=== PATIENT | female | born 1945 | race African-American/Black ===

== ENCOUNTER 2016-08-18 10:27 | Inpatient (IN) ==
--- NOTE | 2016-08-15 14:48 | Discharge Summary ---
<Shannon Cartwright Marivel - Last Filed: 08/17/16 21:24> Date of Encounter: 08/17/16 - Discharge Diagnosis (1) Arthritis of right hip Priority: Primary Status: Acute (2) Chronic pain Priority: Secondary Status: Chronic Comments: Oxycodone/brittany 10/325mg q 6 hours - #120~ LD 07/28/16 - Dr. Aragon Fentanyl Patch 25 mcg - 30 day supply for 07/10/16 Resume the chronic pain medication at discharge, and start Oxycodone 5mg 2 tablets once a day - this way she will take pain medication q 4 hours,~ in addition to the normal routine. This will be continued for 1 week post-op, then tapered down to~ normal dosage. We may consider adding Gabapentin and Mobic for additional pain control. (3) COPD (chronic obstructive pulmonary disease) Priority: Secondary Status: Chronic Qualifiers: COPD type: unspecified COPD Qualified Code(s): J44.9 - Chronic obstructive pulmonary disease, unspecified (4) HLD (hyperlipidemia) Priority: Secondary Status: Chronic (5) GERD (gastroesophageal reflux disease) Priority: Secondary Status: Chronic Qualifiers: Esophagitis presence: esophagitis presence not specified Qualified Code(s) : K21.9 - Gastro-esophageal reflux disease without esophagitis (6) Lumbar stenosis Priority: Secondary Status: Chronic - Discharge Medications Home Medications: Pantoprazole Sodium 40 mg PO DAILY 02/01/15 [History] Alendronate Sodium [Fosamax] 70 mg PO QWEEK 01/08/16 [History] Cholecalciferol (D-3) [Vitamin D] 5,000 unit PO DAILY 01/08/16 [History] Cyanocobalamin (Vitamin B-12) [Vitamin B-12] 1,000 mcg SL DAILY 01/08/16 [ History] FentaNYL PATCH [Duragesic] 25 mcg TD Q72H 01/08/16 [History] Folic Acid 1 mg PO DAILY 01/08/16 [History] Lubiprostone [Amitiza] 24 mcg PO BID 01/08/16 [History] Cinacalcet [Sensipar] 30 mg PO DAILY 07/15/16 [History] OxyCODONE/APAP 10/325 [Percocet 10/325 MG] 1 each PO Q6HR PRN 07/15/16 [History] Ranitidine HCl [Zantac] 150 mg PO BID 07/15/16 [History] Aspirin Enteric Coated [Aspirin EC] 325 mg PO DAILY #21 tablet. 08/17/16 [Rx] OxyCODONE Immed Rel [Roxicodone 5 MG] 5 - 10 mg PO DAILY #14 tablet 08/17/16 [Rx ] Acetaminophen [Tylenol Arthritis] 650 mg PO Q8H PRN 08/18/16 [History] Amitiza 24 mg PO BID 08/18/16 [History] Allergies/Adverse Reactions: Allergies duloxetine [From Cymbalta] Adverse Reaction (Unknown, Verified 08/18/16 13:13) Hallucinating pregabalin [From Lyrica] Adverse Reaction (Verified 08/18/16 13:13) WEIGHT GAIN Primary care physician: Natalia Barragan DO - Patient Status Disposition: Transfer Inpatient Rehab Fac Condition: Good - Discharge Instructions Follow Up With: Gabriel Queen MD [Partnered Physician] - 09/16/16 9:00 am Shannon Cartwright PAC [Physician Loader Technician] - 08/28/16 9:45 am Willem Power Jr, MD [Partnered Physician] - 01/16/17 11:30 am Elva Roldan MD [Partnered Physician] - 09/30/16 11:30 am Natalia Barragan DO [Primary Care Provider] - 09/01/16 10:45 am Additional Instructions: Discharge Instructions: Total Hip Replacement Please call [facility] ([phone]), your Primary Care Physician, or report to the Emergency Room if you have any of the following symptoms: Nausea, vomiting, fever greater that 101.5, swelling, chest pain, shortness of breath, increased pain/redness/drainage/odor for your incision site, numbness/ tingling, or any other concerning symptoms. ACTIVITY:Weight-bearing as tolerated for 8 weeks with hip dislocation precautions that physical therapy taught you. You may progress as tolerated under the guidance of your physical therapist. You do not need to sleep with a pillow between your legs. You can also seep on the operative side or on your stomach. MEDICATIONS: Upon discharge resume your home medications. Take all the medications as prescribed. Take a stool softener if taking narcotic pain medications. Stool softeners are only effective if you drink enough fluids. Drink 6-8 glass of water or fluids a day, unless this is not allowed for another health problem. Despite using stool softeners, if you haven't had a bowel movement in 3 days, please switch to a gentle laxative. Gentle laxatives are sold over the counter. You should have a bowel movement within 24 hours, if not call the office. You will be discharged from the hospital with a prescription for pain medication. You are encouraged to decrease the use of narcotic pain medication as tolerated. Should you require a refill, please call the office. [facility] prescribes narcotic pain medication for only 4-6 weeks after surgery. If you require pain medication beyond this time periord, you may be referred to your Primary Care Physician or to the Pain Clinic for further evaluation. Plan ahead for refills on pain medication as many narcotics either need to be picked up at the office or mailed. It is best to call 48-72 hours in advance of needing a prescription refill so you don't run out of medication. To help control the post-operative pain, you may take NSAIDs (Aleve,Advil, Motrin, ibuprofen, naprosyn) or Tylenol as prescribed on the bottle in addition to the pain medication. ANTICOAGULATION (blood thinners): Continue your Aspirin, Lovenox or Coumadin as prescribed to help prevent a blood clot in the leg or in the lungs. As long as your incision remains dry and you tolerate the NSAIDs (Aleve, Advil, Motrin, ibuprofen, naprosyn), it is OK to use the NSAIDS while you are taking your anticoagulation medication. Should your incision start to drain, stop the NSAID and contact our office. Common symptoms of blood clot in the legs include: localized pain, swelling, calf tenderness, redness or discoloration of the skin. Blood clot in the lung symptoms include: shortness of breath, rapid pulse, sweating, and chest pain that worsens with deep breathing, coughing up blood, lightheadedness, feelings of anxiety. If you experience any of these symptoms notify your physician immediately, go to the emergency room, or if having trouble breathing, call 911. WOUND CARE: Leave the dressing on for 7 days. You may change the dressing if it is saturated greater than 50%. You can shower but not a tub bath or submerge your incision in water. Wash your hands with antibacterial soap, rinse and dry prior to any wound care. If you have saturnino the visiting nurse or rehab facility can remove the stapes 10-14 days after surgery and place steri-strips across the wound. Leave the steri-strips in place until they fall off on their won. You may let water from the shower run on top of the steri-stirips. If you do not have a visiting nurse or rehab facility, you will need to return to the office at 10-14 days for the saturnino to be removed. FOLLOW-UP: Please follow up with your surgeon in the orthopedic clinic in 6 weeks from the day of surgery. If you have saturnino that need to be removed, you will need to come back to the office in 10-14 days from the day of surgery. - Hospital Course Hospital course: Ms. Kruger is a 71 year old female - Time Spent with Patient Total time spent providing and/or coordinating discharge services: <Gabriel Queen - Last Filed: 08/21/16 07:56> Date of Encounter: 08/21/16 Time of Encounter: 07:55 - Discharge Diagnosis (1) Arthritis of right hip Priority: Primary Status: Acute (2) COPD (chronic obstructive pulmonary disease) Priority: Secondary Status: Chronic Qualifiers: COPD type: unspecified COPD Qualified Code(s): J44.9 - Chronic obstructive pulmonary disease, unspecified (3) HLD (hyperlipidemia) Priority: Secondary Status: Chronic Qualifiers: Hyperlipidemia type: unspecified Qualified Code(s): E78.5 - Hyperlipidemia , unspecified (4) GERD (gastroesophageal reflux disease) Priority: Secondary Status: Chronic Qualifiers: Esophagitis presence: esophagitis presence not specified Qualified Code(s) : K21.9 - Gastro-esophageal reflux disease without esophagitis (5) Chronic pain Priority: Secondary Status: Chronic Qualifiers: Chronic pain type: other chronic pain Qualified Code(s): G89.29 - Other chronic pain (6) Vitamin D deficiency Priority: Secondary Status: Chronic (7) B12 deficiency Priority: Secondary Status: Chronic (8) Folate deficiency Priority: Secondary Status: Chronic (9) Lymphoma Priority: Secondary Status: Chronic Qualifiers: Lymphoma type: unspecified type Lymphoma site: unspecified region Qualified Code(s): C85.90 - Non-Hodgkin lymphoma, unspecified, unspecified site (10) Obesity (BMI 35.0-39.9 without comorbidity) Priority: Secondary Status: Chronic (11) Severe protein-calorie malnutrition Priority: Secondary Status: Chronic (12) Acute blood loss anemia Priority: Secondary Status: Chronic Primary care physician: Natalia Barragan DO - Patient Status Functional capacity at discharge: uses cane/walker Overall status at discharge: patient is progressing back to baseline - Hospital Course Hospital course: Ms. Kruger is a 71 year old female The patient had an uneventful postoperative course. They received antibiotics and physical therapy and were discharged in stable condition. There will follow -up in the office in 2 weeks. Patient received 2 units packed red blood cells for acute blood loss anemia. Aspirin DVT prophylaxis. - Time Spent with Patient Total time spent providing and/or coordinating discharge services:
[2016-08-18] MEDS ORDERED: Lidocaine -MPF 2% 2 ML VIAL ONE (10:31)
[2016-08-18] MEDS ORDERED: *HR* Propofol 200 MG/20 ML VIAL IVP ONE (10:31)
[2016-08-18] MEDS ORDERED: *HR* FentaNYL (PF) 100 MCG/2 ML VIAL ONE (10:31)
[2016-08-18] MEDS ORDERED: *HR* Succinylcholine 200 MG/10 ML VIAL IVP ONE (10:31)
[2016-08-18] MEDS ORDERED: Ondansetron 4 MG/2 ML VIAL ONE ×2 (10:31→12:35)
--- NOTE | 2016-08-18 10:52 | History & Physical Report ---
Date of Encounter: 08/18/16 Time of Encounter: 10:51 24 Hour HP Update - Instructions Instructions: If the History and Physical is less than 30 days old and was completed prior to A.M. admission and or procedure and has NOT been updated on calendar day of procedure please complete this update prior to performing procedure. - Update Patient reports changes in Medical Condition: No Changes in examination, assessment, or condition: No Changes in Medication: No Preop tests/diagnostics Reviewed: Yes Surgery Remains Indicated: Yes Consent for Planned Operative Procedure(s) Verified: Yes - Pre-Operative Checklist Preoperative Checklist Indicated: No Prophylactic Antibiotic Ordered: Yes Is VTE Prophylaxis Indicated?: Yes
[2016-08-18] MEDS ORDERED: Famotidine 20 MG/2 ML VIAL IVP ONE (11:08)
[2016-08-18] MEDS ORDERED: Albuterol 2.5 MG/3 ML NEBULIZER ONE (11:08)
[2016-08-18] MEDS ORDERED: Acetaminophen IV 1,000 MG/100 ML INFUS..BTL IVPB ONE (11:09)
[2016-08-18] MEDS ORDERED: Albuterol 2.5 MG/3 ML NEBULIZER IH ONE (11:10)
[2016-08-18] MEDS ORDERED: CeFAZolin Pre 2,000 MG/100 ML 2,000 MG/100 ML BAG IVPB ONE (11:10)
[2016-08-18] MEDS ORDERED: Ringers Solution, Lactated 1,000 ML IVC SCH (11:15)
--- NOTE | 2016-08-18 11:43 | Anesthesia Evaluation PreOp ---
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 History: Other (multi level DDD spondylolisthesis with radiculopathy) Other Medical History: GERD, Other (Obese) Anesthesia History: No Prior Anesthetic Complications : No Alcohol Use: none Drug use: none Medications and Allergies Pantoprazole Sodium 40 mg PO DAILY 02/01/15 [History] Alendronate Sodium [Fosamax] 70 mg PO QWEEK 01/08/16 [History] Cholecalciferol (D-3) [Vitamin D] 5,000 unit PO DAILY 01/08/16 [History] Cyanocobalamin (Vitamin B-12) [Vitamin B-12] 1,000 mcg SL DAILY 01/08/16 [ History] FentaNYL PATCH [Duragesic] 25 mcg TD Q72H 01/08/16 [History] Folic Acid 1 mg PO DAILY 01/08/16 [History] Lubiprostone [Amitiza] 24 mcg PO BID 01/08/16 [History] Pravastatin Sodium 10 mg PO HS 01/08/16 [History] Cinacalcet [Sensipar] 30 mg PO DAILY 07/15/16 [History] OxyCODONE/APAP 10/325 [Percocet 10/325 MG] 1 each PO Q6HR PRN 07/15/16 [History] Ranitidine HCl [Zantac] 150 mg PO BID 07/15/16 [History] Aspirin Enteric Coated [Aspirin EC] 325 mg PO DAILY #21 tablet. 08/17/16 [Rx] OxyCODONE Immed Rel [Roxicodone 5 MG] 5 - 10 mg PO DAILY #14 tablet 08/17/16 [Rx ] Allergies duloxetine [From Cymbalta] Adverse Reaction (Unknown, Verified 07/15/16 10:26) Hallucinating pregabalin [From Lyrica] Adverse Reaction (Verified 07/15/16 10:26) WEIGHT GAIN - Meds/Allergy Pre-op Review Medications Reviewed: Yes Allergies Reviewed: Yes Beta Blockers on Current Med List: No Anesthesia Results - Labs Laboratory Tests 08/07/16 08/07/16 13:28 13:28 Hgb 12.0 Hct 36.9 Plt Count 217 Sodium 142 Potassium 4.1 BUN 12 Creatinine 0.84 - Imaging EKG: report reviewed (NSR) Additional studies: EF 67% Anesthesia Exam O2 Sat Height 1.7 m Height 1.7 m Height 1.7 m Weight 104.326 kg Weight 104.326 kg Weight 104.326 kg O2 Sat by Pulse Oximetry 95 O2 Sat by Pulse Oximetry 95 O2 Sat by Pulse Oximetry 95 Vital Signs Temp Pulse Resp BP Pulse Ox 98.9 F 60 18 119/57 95 08/18/16 10:54 08/18/16 10:54 08/18/16 10:54 08/18/16 10:54 08/18/16 10:54 Height: 5'7 Weight: 230 lbs NPO (# of Hours): MN Pain Scale: 0 - HEENT Pupil (Motor): Pupils equal, EOMI Mallampati: III Denture Type: Upper: Complete Oral Opening: Less than or equal to 3 - ARTIST AND REPERTOIRE MANAGER LOC: Oriented ARTIST AND REPERTOIRE MANAGER Motor: Normal RUE, Normal LUE, Normal RLE, Normal LLE, Normal Face ARTIST AND REPERTOIRE MANAGER Sensory: Normal: RUE, LUE, RLE, LLE, Face - Cardiac Rhythm: Regular Murmur: None JVD: No Carotid Bruit: No - Pulmonary Breath Sounds: bilateral Clear Respiratory Effort: Symmetrical Anesthesia Assess/Plan ASA Score: 3 (OA COPD PATRICIA Gerd Obesity) Modified Mark Scale for Level of Consciousness: Cooperative, oriented, and tranquil Anesthetic Plan: General Monitoring Plan: Standard Monitors Recovery Plan: PACU (Discussed GA, agrees to proceed)
[2016-08-18] MEDS ORDERED: *HR* Promethazine 25 MG/ML VIAL IVP PRN (12:30)
[2016-08-18] MEDS ORDERED: Ondansetron 4 MG/2 ML VIAL IVP ONE (12:30)
[2016-08-18] MEDS ORDERED: Lidocaine -MPF 4% 5 ML AMPUL ONE (12:35)
[2016-08-18] MEDS ORDERED: Dexamethasone 4 MG/ML VIAL ONE (12:35)
[2016-08-18] MEDS ORDERED: *HR* HYDROmorphone 2 MG/ML SYRINGE ONE ×3 (13:34→13:58)
--- NOTE | 2016-08-18 14:16 | Orthopedic Operative Note ---
Date of procedure: 08/18/16 Pre-op diagnosis: Right hip arthritis Post-op diagnosis: same Procedure: Procedure: Right Total Hip Replacment Estimated blood loss: 200 cc Hardware: Biomet DM Cup: 56 G7 fin cup Femoral size 14 echo full profile lateralized stem Head: +0 head with Sahara Procedural Notes: Grade 4 arthritic changes femoral head acetabular socket. Operative procedure: The patient was brought to the operating room and placed on the operating room table. After general anesthesia was administered the patient was placed in the lateral decubitus position with the operative leg up. All pressure points were padded appropriately and the head was stabilized in the neutral position. The operative extremity was prepped and draped in the sterile surgical fashion patient received IV antibiotic prior to skin incision. A standard posterior approach is made to the operative hip, the incision was made through the skin and subcutaneous tissue hemostasis was obtained with Bovie cautery. Using careful sharp dissection the fascia was identified and incised exposing the external rotators. The external rotators were released off the greater trochanter and tagged with #2 FiberWire suture. The capsule was T'd open and the hip was brought into internal rotation. Patient noted to have grade 4 arthritic changes femoral head. The femoral neck cut was made at the appropriate level. An anterior capsulotomy was performed for the anterior retractor. Soft tissues removed from the acetabulum. Patient noted to have grade 4 arthritic changes acetabulum. Acetabulum was first reamed medially, and then reamed in 15 degrees of anteversion and 45 degrees off the horizontal. It was reamed up to the appropriate size 56 The appropriate-sized 56 acetabular cup was impacted in place in 15 degrees of anteversion and 45 degrees off the horizontal. This had good fit and fixation. The hip was brought back in to internal rotation and prepared with the dry box tender followed by the canal finder followed by broaching process in 20 degrees anteversion. It was broached up to the appropriate size 14 The femoral implant was impacted in place in 20 degrees of anteversion. Trial reduction found the hip to be stable with 0 head and Sahara. The trials were removed and the real implants were impacted in place. The hip was reduced, patient had apparent equal leg lengths. The hip had excellent stability with forward flexion to 90 degrees adduction of 30 degrees and internal rotation of 60 degrees. The hip had no shuck. The hips after 2 minutes with a Betadine saline solution. It was irrigated out with 2 L of pulse irrigation. The external rotators were reattached to drill holes in the greater trochanter. Fascia was closed with a running #2 PDS suture. The deep tissue was irrigated and closed deep with #1 PDS suture superficially with 0 PDS suture and skin was closed with skin saturnino. The patient was placed in a sterile dressing and abduction pillow. The patient was extubated and transferred to the recovery room in stable condition. Anesthesia: GETA Surgeon: Gabriel Queen Traveling Electrician: Shannon Cartwright Condition: stable Disposition: PACU
[2016-08-18] MEDS ORDERED: *HR* HYDROmorphone (PF) 1 MG/ML SYRINGE ONE (14:44)
[2016-08-18] MEDS: *HR* HYDROmorphone (PF) 1 MG/ML SYRINGE IVP PRN ×2 (14:45→14:50)
[2016-08-18 15:07] LABS: Hematocrit 33.5 % (35.3-44.9); Hemoglobin 10.7 g/dL (11.5-15.4)
--- NOTE | 2016-08-18 15:42 | Anesthesia Evaluation Post Op ---
Date of Encounter: 08/18/16 Time of Encounter: 15:40 - Vital Signs Vital Signs: Vital Signs/O2 Sat/Glucose, Most Current Temp Pulse Resp BP Pulse Ox 08/18/16 15:32 97.4 F L 73 16 131/59 100 08/18/16 15:27 69 16 130/54 100 08/18/16 15:17 74 16 141/64 100 08/18/16 15:07 97.4 F L 79 16 130/57 100 08/18/16 14:57 77 16 152/70 100 08/18/16 14:47 81 12 145/65 99 08/18/16 14:37 97.3 F L 78 12 136/69 100 - Lungs Lungs: Clear Ascult./Percussion - Airway Airway: Non-obstructed - Cardiovascular Regular Rate - Mental Status Mental Status: Alert & Oriented, Answers Appropriately - Pain Pain Scale: 0 - Nausea Vomiting Nausea Vomiting: Not Present - Hydration Hydration: Ice chips - Discharge PostOp Status: Transfer Patient to floor
[2016-08-18] MEDS ORDERED: Ondansetron 4 MG/2 ML VIAL IVP PRN (16:05)
[2016-08-18] MEDS ORDERED: Sennosides 8.6 MG TABLET PO PRN (16:05)
[2016-08-18] MEDS ORDERED: Acetaminophen 325 MG TABLET PO PRN (16:05)
[2016-08-18] MEDS: Ringers Solution, Lactated 1,000 ML IVC SCH ×2 (16:05→20:51)
[2016-08-18] MEDS ORDERED: Temazepam 15 MG CAPSULE PO PRN (16:05)
[2016-08-18] MEDS ORDERED: *HR* OxyCODONE/APAP 10/325 TABLET PO PRN (16:05)
[2016-08-18] MEDS ORDERED: MOM Conc 10 ML UD.LIQ PO PRN (16:05)
[2016-08-18] MEDS ORDERED: Naloxone 0.4 MG/ML INJ IVP PRN (16:05)
[2016-08-18] MEDS ORDERED: NON-FORMULARY MEDICATION 1 EACH EACH (Alendronate Sodium [Fosamax] 70 MG) PO SCH (16:05)
[2016-08-18] MEDS ORDERED: *HR* Enoxaparin 30 MG/0.3 ML SYRINGE SQ SCH (18:00)
[2016-08-18] MEDS: *HR* Enoxaparin 30 MG/0.3 ML SYRINGE SQ SCH (18:39)
[2016-08-18] MEDS: Ascorbic Acid 500 MG TABLET PO SCH (18:39)
[2016-08-18] MEDS: *HR* OxyCODONE Immed Rel 5 MG TABLET PO PRN (18:49)
[2016-08-18] MEDS: (Lubiprostone [Amitiza] 24 MCG) PO SCH (20:50)
[2016-08-18] MEDS: ceFAZolin 2,000 MG in D5% in Water 100 ML IVPB SCH (21:28)
[2016-08-19] MEDS: *HR* HYDROmorphone (PF) 1 MG/ML SYRINGE IVP PRN ×5 (01:22→22:27)
[2016-08-19] MEDS: ceFAZolin 2,000 MG in D5% in Water 100 ML IVPB SCH (05:16)
[2016-08-19] MEDS: *HR* Enoxaparin 30 MG/0.3 ML SYRINGE SQ SCH ×2 (05:17→17:40)
[2016-08-19 06:44] LABS: Hematocrit 28.5 % (35.3-44.9); Hemoglobin 9.2 g/dL (11.5-15.4)
--- NOTE | 2016-08-19 06:45 | Orthopedics Progress Note ---
Date of Encounter: 08/19/16 Time of Encounter: 06:45 - Assessment and Plan (1) Arthritis of right hip Current Visit: Yes Status: Acute (2) COPD (chronic obstructive pulmonary disease) Current Visit: Yes Status: Chronic Qualifiers: COPD type: unspecified COPD Qualified Code(s): J44.9 - Chronic obstructive pulmonary disease, unspecified (3) HLD (hyperlipidemia) Current Visit: Yes Status: Chronic Qualifiers: Hyperlipidemia type: unspecified Qualified Code(s): E78.5 - Hyperlipidemia , unspecified (4) GERD (gastroesophageal reflux disease) Current Visit: Yes Status: Chronic Qualifiers: Esophagitis presence: esophagitis presence not specified Qualified Code(s) : K21.9 - Gastro-esophageal reflux disease without esophagitis (5) Chronic pain Current Visit: Yes Status: Chronic Qualifiers: Chronic pain type: other chronic pain Qualified Code(s): G89.29 - Other chronic pain (6) Vitamin D deficiency Current Visit: No Status: Chronic (7) B12 deficiency Current Visit: No Status: Chronic (8) Folate deficiency Current Visit: No Status: Chronic (9) Lymphoma Current Visit: No Status: Chronic Qualifiers: Lymphoma type: unspecified type Lymphoma site: unspecified region Qualified Code(s): C85.90 - Non-Hodgkin lymphoma, unspecified, unspecified site (10) Obesity (BMI 35.0-39.9 without comorbidity) Current Visit: Yes Status: Chronic Subjective Interval history: Patient was seen this morning doing well without complaints. Afebrile vital signs stable. Operative extremity: Neurovascularly intact Dressing clean dry and intact Calves nontender Assessment and plan: Continue with postoperative care Hematocrit 33 Objective Vital signs: Vital Signs Temp Pulse Resp BP Pulse Ox 08/19/16 06:25 98.4 F 86 16 154/66 99 08/19/16 04:23 98.1 F 80 17 114/69 100 08/18/16 23:32 98.8 F 83 17 123/62 99 08/18/16 21:30 98 08/18/16 20:36 98.1 F 82 15 133/68 98 08/18/16 18:10 97.9 F 81 18 115/72 98 08/18/16 17:10 98 F 70 18 131/69 98 08/18/16 16:40 98.1 F 80 18 132/70 96 08/18/16 16:10 98 F 75 18 130/68 95 08/18/16 15:40 97.9 F 84 18 133/74 96 08/18/16 15:32 97.4 F L 73 16 131/59 100 08/18/16 15:27 69 16 130/54 100 08/18/16 15:17 74 16 141/64 100 08/18/16 15:07 97.4 F L 79 16 130/57 100 08/18/16 14:57 77 16 152/70 100 08/18/16 14:47 81 12 145/65 99 08/18/16 14:37 97.3 F L 78 12 136/69 100 08/18/16 11:14 98.9 F 60 18 119/57 95 08/18/16 10:54 98.9 F 60 18 119/57 95 Intake and Output 08/18/16 08/18/16 08/19/16 15:59 23:59 07:59 Intake Total 100 / 100 600 / 600 0 / 0 Output Total 400 / 400 250 / 250 100 / 100 Balance -300 / -300 350 / 350 -100 / -100 Intake: IV Fluids 100 / 100 600 / 600 Lactated Ringers 1,000 ML 500 / 500 @ 75 mls/hr IVC .[id number] [facility] Rx#:[id number] Ofirmev 1,000 mg In 100 100 / 100 ml @ 400 mls/hr IVPB ONCE ONE Rx#:[id number] Ancef 2,000 MG In 100 / 100 Dextrose 5% 100 ML @ 200 mls/hr IVPB Q8H [facility] Rx#: [id number] Oral 0 / 0 Output: Urine 250 / 250 100 / 100 Estimated Blood Loss 400 / 400 Other: Weight 104.326 kg - Labs CBC & BMP: 08/18/16 14:47 Labs: Abnormal lab results Hgb 10.7 g/dL (11.5-15.4) L 08/18/16 14:47 Hct 33.5 % (35.3-44.9) L 08/18/16 14:47 - VTE Documentation of Mechanical Device: Venous foot pump, device Consult Discharge Plan - Plan Referrals: Natalia Barragan DO [Primary Care Provider] -
[2016-08-19 06:55] LABS: BUN/Creatinine Ratio 19 (6-26); Blood Urea Nitrogen 17 mg/dL (7-20); Calcium 10.1 mg/dL (8.6-10.8); Carbon Dioxide 23 mEq/L (19-29); Chloride 108 mEq/L (98-109); Glucose 134 mg/dL (70-99); Osmolality,Calculated 294 (280-300); Potassium 4.5 mEq/L (3.5-4.5); Sodium 140 mEq/L (136-145); eGFR For African Americans > 60 (> 60); eGFR For Non-African Americans > 60 (> 60)
[2016-08-19] MEDS: Cyanocobalamin (B-12) 1,000 MCG TABLET PO SCH (08:52)
[2016-08-19] MEDS: Famotidine 20 MG TABLET PO SCH ×2 (08:52→17:40)
[2016-08-19] MEDS: Ascorbic Acid 500 MG TABLET PO SCH ×2 (08:52→17:40)
[2016-08-19] MEDS: Cholecalciferol (D-3) 1,000 UNIT TABLET PO SCH (08:52)
[2016-08-19] MEDS: Multivit/Ca/Min/Fe/FA 1 TAB TABLET PO SCH (08:53)
[2016-08-19] MEDS: Folic Acid 1 MG TABLET PO SCH (08:53)
[2016-08-19] MEDS: (Lubiprostone [Amitiza] 24 MCG) PO SCH ×2 (08:54→20:57)
[2016-08-19] MEDS: *HR* OxyCODONE Immed Rel 5 MG TABLET PO PRN ×2 (09:14→20:49)
[2016-08-20] MEDS: *HR* OxyCODONE Immed Rel 5 MG TABLET PO PRN ×4 (00:25→21:04)
[2016-08-20] MEDS: *HR* HYDROmorphone (PF) 1 MG/ML SYRINGE IVP PRN ×2 (03:58→17:42)
[2016-08-20] MEDS: *HR* Enoxaparin 30 MG/0.3 ML SYRINGE SQ SCH ×2 (05:12→17:42)
[2016-08-20 06:45] LABS: Hematocrit 22.4 % (35.3-44.9)
[2016-08-20 06:52] LABS: Hemoglobin 7.4 g/dL (11.5-15.4)
[2016-08-20 07:05] LABS: BUN/Creatinine Ratio 15 (6-26); Blood Urea Nitrogen 12 mg/dL (7-20); Calcium 10.4 mg/dL (8.6-10.8); Carbon Dioxide 24 mEq/L (19-29); Chloride 109 mEq/L (98-109); Glucose 129 mg/dL (70-99); Osmolality,Calculated 291 (280-300); Potassium 4.2 mEq/L (3.5-4.5); Sodium 140 mEq/L (136-145); eGFR For African Americans > 60 (> 60); eGFR For Non-African Americans > 60 (> 60)
[2016-08-20] MEDS: Cyanocobalamin (B-12) 1,000 MCG TABLET PO SCH (08:21)
[2016-08-20] MEDS: Famotidine 20 MG TABLET PO SCH ×2 (08:21→17:42)
[2016-08-20] MEDS: Ascorbic Acid 500 MG TABLET PO SCH ×2 (08:21→17:42)
[2016-08-20] MEDS: Folic Acid 1 MG TABLET PO SCH (08:22)
[2016-08-20] MEDS: Multivit/Ca/Min/Fe/FA 1 TAB TABLET PO SCH (08:22)
[2016-08-20] MEDS: Cholecalciferol (D-3) 1,000 UNIT TABLET PO SCH (08:22)
[2016-08-20] MEDS: (Lubiprostone [Amitiza] 24 MCG) PO SCH ×2 (08:23→20:52)
--- NOTE | 2016-08-20 08:27 | Orthopedics Progress Note ---
Date of Encounter: 08/20/16 Time of Encounter: 08:26 - Assessment and Plan (1) Arthritis of right hip Current Visit: Yes Status: Acute (2) COPD (chronic obstructive pulmonary disease) Current Visit: Yes Status: Chronic Qualifiers: COPD type: unspecified COPD Qualified Code(s): J44.9 - Chronic obstructive pulmonary disease, unspecified (3) HLD (hyperlipidemia) Current Visit: Yes Status: Chronic Qualifiers: Hyperlipidemia type: unspecified Qualified Code(s): E78.5 - Hyperlipidemia , unspecified (4) GERD (gastroesophageal reflux disease) Current Visit: Yes Status: Chronic Qualifiers: Esophagitis presence: esophagitis presence not specified Qualified Code(s) : K21.9 - Gastro-esophageal reflux disease without esophagitis (5) Chronic pain Current Visit: Yes Status: Chronic Qualifiers: Chronic pain type: other chronic pain Qualified Code(s): G89.29 - Other chronic pain (6) Vitamin D deficiency Current Visit: No Status: Chronic (7) B12 deficiency Current Visit: No Status: Chronic (8) Folate deficiency Current Visit: No Status: Chronic (9) Lymphoma Current Visit: No Status: Chronic Qualifiers: Lymphoma type: unspecified type Lymphoma site: unspecified region Qualified Code(s): C85.90 - Non-Hodgkin lymphoma, unspecified, unspecified site (10) Obesity (BMI 35.0-39.9 without comorbidity) Current Visit: Yes Status: Chronic (11) Severe protein-calorie malnutrition Current Visit: Yes Status: Chronic (12) Acute blood loss anemia Current Visit: Yes Status: Chronic Subjective Interval history: Patient was seen this morning doing well without complaints. Afebrile vital signs stable. Operative extremity: Neurovascularly intact Dressing clean dry and intact Calves nontender Assessment and plan: Continue with postoperative care hematocrit 22.4 transfuse 2 units packed red blood Objective Vital signs: Vital Signs Temp Pulse Resp BP Pulse Ox 08/20/16 06:45 98.4 F 89 16 135/67 98 08/20/16 04:00 98.2 F 96 16 132/62 97 08/20/16 00:29 98.2 F 97 17 128/55 95 08/19/16 19:33 98.1 F 89 16 117/65 97 08/19/16 14:44 98.4 F 96 14 110/54 98 08/19/16 10:46 98.3 F 92 16 137/78 96 Intake and Output 08/19/16 08/20/16 08/20/16 23:59 07:59 15:59 Intake Total 540 / 540 550 / 550 Output Total 350 / 350 475 / 475 Balance 190 / 190 75 / 75 Intake: Oral 540 / 540 550 / 550 Output: Urine 350 / 350 475 / 475 - Labs CBC & BMP: 08/20/16 06:01 08/20/16 06:01 Labs: Abnormal lab results Hgb 7.4 g/dL (11.5-15.4) L D 08/20/16 06:01 Hct 22.4 % (35.3-44.9) L 08/20/16 06:01 Glucose 129 mg/dL (70-99) H 08/20/16 06:01 - VTE Documentation of Mechanical Device: Venous foot pump, device Consult Discharge Plan - Plan Additional Instructions: Discharge Instructions: Total Hip Replacement Please call [facility] ([phone]), your Primary Care Physician, or report to the Emergency Room if you have any of the following symptoms: Nausea, vomiting, fever greater that 101.5, swelling, chest pain, shortness of breath, increased pain/redness/drainage/odor for your incision site, numbness/ tingling, or any other concerning symptoms. ACTIVITY:Weight-bearing as tolerated for 8 weeks with hip dislocation precautions that physical therapy taught you. You may progress as tolerated under the guidance of your physical therapist. You do not need to sleep with a pillow between your legs. You can also seep on the operative side or on your stomach. MEDICATIONS: Upon discharge resume your home medications. Take all the medications as prescribed. Take a stool softener if taking narcotic pain medications. Stool softeners are only effective if you drink enough fluids. Drink 6-8 glass of water or fluids a day, unless this is not allowed for another health problem. Despite using stool softeners, if you haven't had a bowel movement in 3 days, please switch to a gentle laxative. Gentle laxatives are sold over the counter. You should have a bowel movement within 24 hours, if not call the office. You will be discharged from the hospital with a prescription for pain medication. You are encouraged to decrease the use of narcotic pain medication as tolerated. Should you require a refill, please call the office. [facility] prescribes narcotic pain medication for only 4-6 weeks after surgery. If you require pain medication beyond this time periord, you may be referred to your Primary Care Physician or to the Pain Clinic for further evaluation. Plan ahead for refills on pain medication as many narcotics either need to be picked up at the office or mailed. It is best to call 48-72 hours in advance of needing a prescription refill so you don't run out of medication. To help control the post-operative pain, you may take NSAIDs (Aleve,Advil, Motrin, ibuprofen, naprosyn) or Tylenol as prescribed on the bottle in addition to the pain medication. ANTICOAGULATION (blood thinners): Continue your Aspirin, Lovenox or Coumadin as prescribed to help prevent a blood clot in the leg or in the lungs. As long as your incision remains dry and you tolerate the NSAIDs (Aleve, Advil, Motrin, ibuprofen, naprosyn), it is OK to use the NSAIDS while you are taking your anticoagulation medication. Should your incision start to drain, stop the NSAID and contact our office. Common symptoms of blood clot in the legs include: localized pain, swelling, calf tenderness, redness or discoloration of the skin. Blood clot in the lung symptoms include: shortness of breath, rapid pulse, sweating, and chest pain that worsens with deep breathing, coughing up blood, lightheadedness, feelings of anxiety. If you experience any of these symptoms notify your physician immediately, go to the emergency room, or if having trouble breathing, call 911. WOUND CARE: Leave the dressing on for 7 days. You may change the dressing if it is saturated greater than 50%. You can shower but not a tub bath or submerge your incision in water. Wash your hands with antibacterial soap, rinse and dry prior to any wound care. If you have saturnino the visiting nurse or rehab facility can remove the stapes 10-14 days after surgery and place steri-strips across the wound. Leave the steri-strips in place until they fall off on their won. You may let water from the shower run on top of the steri-stirips. If you do not have a visiting nurse or rehab facility, you will need to return to the office at 10-14 days for the saturnino to be removed. FOLLOW-UP: Please follow up with your surgeon in the orthopedic clinic in 6 weeks from the day of surgery. If you have saturnino that need to be removed, you will need to come back to the office in 10-14 days from the day of surgery. Referrals: Gabriel Queen MD [Partnered Physician] - 09/16/16 9:00 am Shannon Cartwright PAC [Physician Wringer Operator] - 08/28/16 9:45 am Willem Power Jr, MD [Partnered Physician] - 01/16/17 11:30 am Elva Roldan MD [Partnered Physician] - 09/30/16 11:30 am Natalia Barragan DO [Primary Care Provider] - 09/01/16 10:45 am
[2016-08-20] MEDS ORDERED: Furosemide 20 MG/2 ML VIAL IVP PRN (08:52)
[2016-08-20] MEDS: 0.9 % Sodium Chloride 250 ML IVC SCH ×2 (15:10→19:00)
[2016-08-21] MEDS: *HR* HYDROmorphone (PF) 1 MG/ML SYRINGE IVP PRN (00:54)
[2016-08-21] MEDS: *HR* OxyCODONE Immed Rel 5 MG TABLET PO PRN ×2 (04:48→08:36)
[2016-08-21] MEDS: *HR* Enoxaparin 30 MG/0.3 ML SYRINGE SQ SCH (06:24)
[2016-08-21 06:51] VITALS: BP 119/60
--- NOTE | 2016-08-21 07:56 | Orthopedics Progress Note ---
Date of Encounter: 08/21/16 Time of Encounter: 07:56 - Assessment and Plan (1) Arthritis of right hip Current Visit: Yes Status: Acute (2) COPD (chronic obstructive pulmonary disease) Current Visit: Yes Status: Chronic Qualifiers: COPD type: unspecified COPD Qualified Code(s): J44.9 - Chronic obstructive pulmonary disease, unspecified (3) HLD (hyperlipidemia) Current Visit: Yes Status: Chronic Qualifiers: Hyperlipidemia type: unspecified Qualified Code(s): E78.5 - Hyperlipidemia , unspecified (4) GERD (gastroesophageal reflux disease) Current Visit: Yes Status: Chronic Qualifiers: Esophagitis presence: esophagitis presence not specified Qualified Code(s) : K21.9 - Gastro-esophageal reflux disease without esophagitis (5) Chronic pain Current Visit: Yes Status: Chronic Qualifiers: Chronic pain type: other chronic pain Qualified Code(s): G89.29 - Other chronic pain (6) Vitamin D deficiency Current Visit: No Status: Chronic (7) B12 deficiency Current Visit: No Status: Chronic (8) Folate deficiency Current Visit: No Status: Chronic (9) Lymphoma Current Visit: No Status: Chronic Qualifiers: Lymphoma type: unspecified type Lymphoma site: unspecified region Qualified Code(s): C85.90 - Non-Hodgkin lymphoma, unspecified, unspecified site (10) Obesity (BMI 35.0-39.9 without comorbidity) Current Visit: Yes Status: Chronic (11) Severe protein-calorie malnutrition Current Visit: Yes Status: Chronic (12) Acute blood loss anemia Current Visit: Yes Status: Chronic Subjective Interval history: Patient was seen this morning doing well without complaints. Afebrile vital signs stable. Operative extremity: Neurovascularly intact Dressing clean dry and intact Calves nontender Assessment and plan: Continue with postoperative care Discharge today Objective Vital signs: Vital Signs Temp Pulse Resp BP Pulse Ox 08/21/16 06:48 98.1 F 86 16 119/60 93 08/21/16 04:00 98.7 F 90 17 141/65 95 08/21/16 00:00 99.3 F 101 16 151/61 96 08/20/16 22:02 99.6 F 96 16 141/65 95 08/20/16 19:00 99.7 F H 98 18 126/65 95 08/20/16 18:45 98.9 F 100 19 143/70 95 08/20/16 17:30 98.9 F 113 19 143/70 95 08/20/16 15:25 98.8 F 93 18 119/65 95 08/20/16 15:10 99.3 F 95 17 108/61 95 08/20/16 14:38 97.9 F 105 16 104/67 96 08/20/16 11:30 98.2 F 102 18 108/62 95 Intake and Output 08/20/16 08/20/16 08/21/16 15:59 23:59 07:59 Intake Total 240 / 240 1475 / 1475 100 / 100 Output Total 150 / 150 450 / 450 175 / 175 Balance 90 / 90 1025 / 1025 -75 / -75 Intake: IV Fluids 250 / 250 0.9 % Sodium Chloride 250 250 / 250 ML @ 25 mls/hr IVC .Q10H [facility] Rx#:[id number] Oral 240 / 240 550 / 550 100 / 100 Blood Product 0 / 0 675 / 675 Rbcs Leuko Poor As-1 325 / 325 Unit [id number] Rbcs Leuko Poor As-1 0 / 0 350 / 350 Unit [id number] Output: Urine 150 / 150 450 / 450 175 / 175 - Labs CBC & BMP: 08/20/16 06:01 08/20/16 06:01 Labs: Abnormal lab results Hgb 7.4 g/dL (11.5-15.4) L D 08/20/16 06:01 Hct 22.4 % (35.3-44.9) L 08/20/16 06:01 Glucose 129 mg/dL (70-99) H 08/20/16 06:01 Antibody Screen POSITIVE A 08/20/16 09:08 - VTE Documentation of Mechanical Device: Venous foot pump, device Consult Discharge Plan - Plan Additional Instructions: Discharge Instructions: Total Hip Replacement Please call [facility] ([phone]), your Primary Care Physician, or report to the Emergency Room if you have any of the following symptoms: Nausea, vomiting, fever greater that 101.5, swelling, chest pain, shortness of breath, increased pain/redness/drainage/odor for your incision site, numbness/ tingling, or any other concerning symptoms. ACTIVITY:Weight-bearing as tolerated for 8 weeks with hip dislocation precautions that physical therapy taught you. You may progress as tolerated under the guidance of your physical therapist. You do not need to sleep with a pillow between your legs. You can also seep on the operative side or on your stomach. MEDICATIONS: Upon discharge resume your home medications. Take all the medications as prescribed. Take a stool softener if taking narcotic pain medications. Stool softeners are only effective if you drink enough fluids. Drink 6-8 glass of water or fluids a day, unless this is not allowed for another health problem. Despite using stool softeners, if you haven't had a bowel movement in 3 days, please switch to a gentle laxative. Gentle laxatives are sold over the counter. You should have a bowel movement within 24 hours, if not call the office. You will be discharged from the hospital with a prescription for pain medication. You are encouraged to decrease the use of narcotic pain medication as tolerated. Should you require a refill, please call the office. [facility] prescribes narcotic pain medication for only 4-6 weeks after surgery. If you require pain medication beyond this time periord, you may be referred to your Primary Care Physician or to the Pain Clinic for further evaluation. Plan ahead for refills on pain medication as many narcotics either need to be picked up at the office or mailed. It is best to call 48-72 hours in advance of needing a prescription refill so you don't run out of medication. To help control the post-operative pain, you may take NSAIDs (Aleve,Advil, Motrin, ibuprofen, naprosyn) or Tylenol as prescribed on the bottle in addition to the pain medication. ANTICOAGULATION (blood thinners): Continue your Aspirin, Lovenox or Coumadin as prescribed to help prevent a blood clot in the leg or in the lungs. As long as your incision remains dry and you tolerate the NSAIDs (Aleve, Advil, Motrin, ibuprofen, naprosyn), it is OK to use the NSAIDS while you are taking your anticoagulation medication. Should your incision start to drain, stop the NSAID and contact our office. Common symptoms of blood clot in the legs include: localized pain, swelling, calf tenderness, redness or discoloration of the skin. Blood clot in the lung symptoms include: shortness of breath, rapid pulse, sweating, and chest pain that worsens with deep breathing, coughing up blood, lightheadedness, feelings of anxiety. If you experience any of these symptoms notify your physician immediately, go to the emergency room, or if having trouble breathing, call 911. WOUND CARE: Leave the dressing on for 7 days. You may change the dressing if it is saturated greater than 50%. You can shower but not a tub bath or submerge your incision in water. Wash your hands with antibacterial soap, rinse and dry prior to any wound care. If you have saturnino the visiting nurse or rehab facility can remove the stapes 10-14 days after surgery [address] steri-strips across the wound. Leave the steri-strips in place until they fall off on their won. You may let water from the shower run on top of the steri-stirips. If you do not have a visiting nurse or rehab facility, you will need to return to the office at 10-14 days for the saturnino to be removed. FOLLOW-UP: Please follow up with your surgeon in the orthopedic clinic in 6 weeks from the day of surgery. If you have saturnino that need to be removed, you will need to come back to the office in 10-14 days from the day of surgery. Referrals: Gabriel Queen MD [Partnered Physician] - 09/16/16 9:00 am Shannon Cartwright PAC [Physician Director Learning Services] - 08/28/16 9:45 am Willem Power Jr, MD [Partnered Physician] - 01/16/17 11:30 am Elva Roldan MD [Partnered Physician] - 09/30/16 11:30 am Natalia Barragan DO [Primary Care Provider] - 09/01/16 10:45 am
[2016-08-21] MEDS: Cyanocobalamin (B-12) 1,000 MCG TABLET PO SCH (08:34)
[2016-08-21] MEDS: Ascorbic Acid 500 MG TABLET PO SCH (08:35)
[2016-08-21] MEDS: Folic Acid 1 MG TABLET PO SCH (08:35)
[2016-08-21] MEDS: Cholecalciferol (D-3) 1,000 UNIT TABLET PO SCH (08:35)
[2016-08-21] MEDS: Famotidine 20 MG TABLET PO SCH (08:35)
[2016-08-21] MEDS: (Lubiprostone [Amitiza] 24 MCG) PO SCH (08:35)
[2016-08-21] MEDS: Multivit/Ca/Min/Fe/FA 1 TAB TABLET PO SCH (08:35)
[2016-08-21 09:06] LABS: Hematocrit 25.8 % (35.3-44.9); Hemoglobin 8.5 g/dL (11.5-15.4)
== END 2016-08-21 11:47 | DRG 469 ==
LOC: SAMDAY 10:27 → 3NENU 15:40
PROVIDERS: ADMIT Orthopaedic Surgery; ATTEND Orthopaedic Surgery

== ENCOUNTER 2018-05-25 12:18 | Observation (INO) ==
[2018-05-25] MEDS ORDERED: Albuterol 2.5 MG/3 ML NEBULIZER IH ONE (12:33)
[2018-05-25] MEDS ORDERED: CeFAZolin Syr 2,000MG/20 ML 2,000 MG/20 ML SYRINGE IVPB ONE (12:33)
[2018-05-25] MEDS ORDERED: Ringers Solution, Lactated 1,000 ML IVC SCH (12:45)
[2018-05-25] MEDS ORDERED: *HR* Propofol 200 MG/20 ML VIAL IVP ONE ×2 (12:58→14:51)
[2018-05-25] MEDS ORDERED: *HR* Succinylcholine 200 MG/10 ML VIAL IVP ONE (12:59)
[2018-05-25] MEDS ORDERED: Ondansetron 4 MG/2 ML VIAL ONE (12:59)
[2018-05-25] MEDS ORDERED: *HR* Rocuronium Bromide 50 MG/5 ML VIAL ONE (12:59)
[2018-05-25] MEDS ORDERED: Dexamethasone 4 MG/ML VIAL ONE (12:59)
[2018-05-25] MEDS ORDERED: Lidocaine -MPF 2% 2 ML VIAL ONE (12:59)
[2018-05-25] MEDS ORDERED: *HR* FentaNYL (PF) 100 MCG/2 ML VIAL ONE ×2 (12:59→14:52)
[2018-05-25] MEDS ORDERED: Famotidine 20 MG/2 ML VIAL IVP ONE (13:45)
[2018-05-25] MEDS ORDERED: Acetaminophen IV 1,000 MG/100 ML INFUS..BTL IVPB ONE (13:45)
[2018-05-25] MEDS ORDERED: *HR* HYDROmorphone 2 MG TABLET PO PRN (13:46)
[2018-05-25] MEDS ORDERED: *HR* OxyCODONE Immed Rel 5 MG TABLET PO PRN (13:46)
[2018-05-25] MEDS ORDERED: *HR* HYDROmorphone (PF) 1 MG/ML SYRINGE IVP PRN (13:46)
--- NOTE | 2018-05-25 13:50 | Anesthesia Evaluation PreOp ---
Date of Encounter: 05/25/18 Time of Encounter: 13:48 - Past History Planned Operation: Hysteroscopy/D&C/Polypectomy Cardiac History: Denies any Significant Hx Pulmonary History: Smoker (2ppd x 40yrs - quit 20 yrs ago), COPD, PATRICIA Dx (denies) EMPLOYMENT DIRECTOR History: Denies Any Significant HX Other Medical History: Renal (stage 2 CKDz), Bleeding (Hx DVT - BLE/Popliteal last Lovenox dose 2 days ago), Other (HYperparathyroidism, Non-Hodgkins Lymphoma in remission) Anesthesia History: No Prior Anesthetic Complications, Past Anesthesia (umbilical hernia repair, CTR, Jaw surgery, Foot surgery, D&C, Lymph node resection, SCS trial, Teresa, Spine surgery, PLIF, R-PREET, US guided Throid Bx, A- port placement (for lymphoma)), Problems Alcohol Use: none Drug use: none Medications and Allergies Allergy/AdvReac Type Severity Reaction Status Date / Time duloxetine [From Cymbalta] AdvReac Unknown Hallucinati Verified 05/25/18 14:01 ng pregabalin [From Lyrica] AdvReac WEIGHT GAIN Verified 05/25/18 14:01 - Meds/Allergy Pre-op Review Medications Reviewed: Yes Allergies Reviewed: Yes Beta Blockers on Current Med List: No Anesthesia Results - Labs Laboratory Tests 05/19/18 05/19/18 09:20 09:20 WBC 5.9 Hgb 12.2 Hct 38.6 Plt Count 243 Potassium 4.1 - Imaging EKG: image reviewed (70bpm - SINUS RHYTHM WITH FIRST DEGREE AV BLOCK BASELINE ARTIFACT Electronically Signed On 04-09-2018 8:31:06 EST by Brandan Mejia) Additional studies: ECHO 04/10/2018 EV/EV echocardiogram Impressions: LVEF 60%. Normal LV chamber size, wall thickness and function. Moderate left ventricular diastolic dysfunction. Normal right ventricular structure and function. No evidence of pulmonary hypertension. No significant valvular dysfunction. Left Ventricular Wall Motion: Rest Echo Findings All wall segments showed normal motion. Anesthesia Exam O2 Sat Height 1.7 m Height 1.7 m Height 1.7 m Weight 107.048 kg Weight 107.048 kg Weight 107.048 kg O2 Sat by Pulse Oximetry 96 Vital Signs Temp Pulse Resp BP Pulse Ox 98.3 F 66 18 118/58 96 05/25/18 12:40 05/25/18 12:40 05/25/18 12:40 05/25/18 12:40 05/25/18 12:40 Height: 5'7" Weight: 236# BMI = 37 NPO (# of Hours): MNoc - HEENT Pupil (Motor): Pupils equal, EOMI Mallampati: III Teeth: Missing, Edentulous (upper), Poor dentition Oral Opening: Greater than 3 - EMPLOYMENT DIRECTOR LOC: Oriented EMPLOYMENT DIRECTOR Motor: Normal RUE, Normal LUE, Normal RLE, Normal LLE, Normal Face EMPLOYMENT DIRECTOR Sensory: Normal: RUE, LUE, RLE, LLE, Face - Cardiac Rhythm: Regular Murmur: None - Pulmonary Breath Sounds: bilateral Clear Anesthesia Assess/Plan ASA Score: 3 (Obesity, Smoker, COPD, GERD) Level of consciousness: Cooperative, Oriented, Tranquil Anesthetic Plan: General Monitoring Plan: Standard Monitors Recovery Plan: PACU Anes Supervising Prov Stmt: Pt seen/evaluated, R&B Discussed, questions answered and consent obtained. Frieda Gomez MD
--- NOTE | 2018-05-25 14:15 | History & Physical Report ---
Date of Encounter: 05/25/18 Time of Encounter: 14:14 24 Hour HP Update - Instructions Instructions: If the History and Physical is less than 30 days old and was completed prior to A.M. admission and or procedure and has NOT been updated on calendar day of procedure please complete this update prior to performing procedure. - Update Patient reports changes in Medical Condition: No Changes in examination, assessment, or condition: No Changes in Medication: No Preop tests/diagnostics Reviewed: Yes Surgery Remains Indicated: Yes Consent for Planned Operative Procedure(s) Verified: Yes - Pre-Operative Checklist Preoperative Checklist Indicated: Yes Prophylactic Antibiotic Ordered: Yes Home Medications Include Beta Ac: No Beta Ac Taken Today (Day of Surgery): No Beta Ac Taken Yesterday (Day Prior to Surgery): No Is VTE Prophylaxis Indicated?: Yes
[2018-05-25] MEDS ORDERED: Ferric Subsulfate 8 GM TOPICAL ONE (14:20)
[2018-05-25] MEDS ORDERED: Ibuprofen 600 MG TABLET PO PRN (15:24)
--- NOTE | 2018-05-25 15:30 | Operative Note ---
Date of procedure: 05/25/18 Pre-op diagnosis: Postmenopausal bleeding, submucosal mass Post-op diagnosis: same (Submucosal polyp and complete uterine procidentia) Procedure: Operative hysteroscopy resection of submucosal polyp with myosure Complications: postop bleeding from the uterus Anesthesia: SUMAYA Surgeon: King Haro Was there an recruiting assistant present: Yes Logistics Engineer: Cathi Patel Estimated blood loss (cc): 100 Specimen: Endometrial curettings with submucosal polyp Condition: stable Disposition: PACU Procedure in Detail: Patient is a 73-year-old female who presented for operative hysteroscopy resection of submucosal mass secondary to postmenopausal bleeding patient had been referred to the office due to post menopausal bleeding ultrasound showed a thickened endometrium with what appeared to be a polypoid structure within the endometrial cavity it was recommended she undergo a D&C to remove this. Patient has recently diagnosed with a DVT and is currently on Lovenox. We did have her stop that prior to today's surgery. Procedure: Patient was taken the operating room where general anesthesia was found be adequate. She was placed in the dorsal lithotomy position prepped and draped in usual fashion. Timeout was obtained. Patient was noted to have complete uterine prolapse with the cervix protruding out of the vagina. The anterior lip of the cervix was grasped with a single-tooth tenaculum and uterus sounded to 6 cm and Funez dilators were used to dilate the cervix. The hysteroscope was inserted patient was noted to have a large polypoid structure within the endometrial cavity. We converted over to the Myosure and this was inserted into the cavity we proceeded to resect out the polyp we were able to get the base the polyp but during this the pressure within the cavity was the polyp to the post right out the cervix into the Space in. It measured approximately 3-4 cm in length. The endometrial cavity was visualized at this time no other pathology was seen. The remaining hyperplastic tissue was resected out with the device and the procedure was terminated. Because the uterus was completely protruding out patient was having moderate amount of bleeding at health at this time would be best to pack the vagina for approximately one hour to help tamponade off that bleeding. One-inch gauze was then placed in the vagina patient uterus backup and the ligament in place. This will be removed prior to discharge. Patient will be discharged on Motrin 600 mg as needed for pain she will follow up in the office in 2 weeks.
[2018-05-25] MEDS: *HR* Enoxaparin 120 MG/0.8 ML SYRINGE SQ SCH (19:53)
[2018-05-25] MEDS: *HR* OxyCODONE/APAP 5/325 TABLET PO PRN (20:34)
[2018-05-25] MEDS ORDERED: Lubiprostone [Amitiza] 24 MCG PO SCH (21:00)
[2018-05-25] MEDS ORDERED: *HR* Rivaroxaban 15 MG TABLET PO SCH (21:00)
[2018-05-26] MEDS: Budesonide/Formoterol 160/4.5 1 PUFF INH IH SCH ×2 (04:17→10:08)
[2018-05-26] MEDS: *HR* OxyCODONE/APAP 5/325 TABLET PO PRN (04:50)
[2018-05-26] MEDS: *HR* Enoxaparin 120 MG/0.8 ML SYRINGE SQ SCH (06:35)
--- NOTE | 2018-05-26 07:31 | Discharge Summary ---
Date of Encounter: 05/26/18 Time of Encounter: 07:34 - Discharge Diagnosis (1) Status post dilatation and curettage Priority: Primary Status: Acute (2) Postoperative vaginal bleeding Priority: Primary Status: Acute Comments: Bleeding under control at this time will discharge home with follow-up in 2 weeks (3) DVT (deep venous thrombosis) Priority: Secondary Status: Acute Qualifiers: DVT location: lower extremity Affected thrombotic vein of extremity: popliteal Chronicity: acute Laterality: bilateral Qualified Code(s): I82.433 - Acute embolism and thrombosis of popliteal vein, bilateral - Discharge Medications Home Medications: Albuterol Sulfate [Albuterol Inhaler] 2 puff IH Q4-6H PRN 05/25/18 [History] Budesonide/Formoterol 160/4.5 [Symbicort 160/4.5] 2 puff IH BIDR 05/25/18 [History] Cholecalciferol (D-3) [Vitamin D] 5,000 unit PO DAILY 05/25/18 [History] Cinacalcet [Sensipar] 30 mg PO DAILY 05/25/18 [History] Cyanocobalamin (Vitamin B-12) [Vitamin B-12] 1,000 mcg PO DAILY 05/25/18 [History] Enoxaparin [Lovenox] 120 mg SQ Q12HR 05/25/18 [History] Folic Acid 1 mg PO DAILY 05/25/18 [History] Furosemide [Lasix] 20 mg PO DAILY 05/25/18 [History] Ibuprofen [Motrin] 600 mg PO Q6HR PRN #30 tablet 05/25/18 [Rx] Lubiprostone [Amitiza] 24 mcg PO BID 05/25/18 [History] OxyCODONE/APAP 5/325 [Percocet 5/325 MG] 1 tab PO 5XD 05/25/18 [History] Ranitidine HCl [Acid Furniture Arranger] 150 mg PO BID 05/25/18 [History] Rivaroxaban [Xarelto] 15 mg PO BID 05/25/18 [History] Allergies/Adverse Reactions: Allergy/AdvReac Type Severity Reaction Status Date / Time duloxetine [From Cymbalta] AdvReac Unknown Hallucinati Verified 05/25/18 14:01 ng pregabalin [From Lyrica] AdvReac WEIGHT GAIN Verified 05/25/18 14:01 Date of admission: 05/25/18 17:26 Primary care physician: Natalia Barragan DO Discharging clinician: King Haro Anticipated date of discharge: 05/26/18 - Patient Status Disposition: Home, Self-Care Condition: Good Functional capacity at discharge: independent ambulation Overall status at discharge: patient is progressing back to baseline - Discharge Instructions Follow Up With: Natalia Barragan DO [Primary Care Provider] - King Haro DO [Partnered Physician] - Additional Instructions: 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 Below, you will find groups of instructions related to caring for yourself after your procedure. There may be instructions that do not apply to you depending on the procedure you had. Before you go home, your nurse will explain these instructions to you and campbell any special instructions you may have. Be sure to ask your doctor if you have any questions or concerns about any of these instructions. Medications -Continue taking your home medications as prescribed by your doctor prior to surgery. -You will be notified of any changes in home medications before leaving the hospital. -Pain medication may be sent home with you. Take it as directed. It is important to control your pain during recovery. -Antibiotics are sometimes used to prevent infection after surgery. Do not stop taking antibiotics if they were prescribed for you. Take them until they are gone. Diet -You will be eating regular food before you are discharged from the hospital. Eat healthy foods to help you heal more quickly and increase your energy. Avoid foods that may cause gas as this will make you feel uncomfortable. - You many find it difficult to have a bowel movement for a few days after surgery. -Eating a diet high in fiber will help to soften your stool. This includes foods such as cereals, whole grain breads and vegetables. You can also take over the counter fiber supplements and/or stool softeners. - It is also important to drink 6-8 glasses of water a day. Smoking - Smoking increases your changes for post-surgery complications. It is never too late to quit. Ask your nurse or doctor for information to help you stop smoking. Activity - Restrict yourself to light activity and increase your activity level slowly. Rest frequently throughout the day. Be aware that your pain medication may cause drowsiness. It usually takes about 4-8 weeks for the body to heal. - You may walk slowly. DO NOT exercise until your doctor tells you it is safe to do so. - No tampons, douching, or sex for 6 weeks. This allows time for healing. - Lift nothing heavier than 10-15 pounds. - You can drive in 2-4 weeks, unless instructed otherwise by your doctor. - You can expect to return to work or school and other normal activities in about 6 weeks or as directed by your doctor. - When you get home, you may shower normally. If you have an incision, wash the area with soap and water then dry thoroughly after showering. You may have steri-strips (thin strips of tape used to help hold the incision together while it heals). If these are present, remove them in 7 days, they will fall off on their own. Keep the area of your incision clean and dry. When to Call Your Doctor -If you are soaking a sanitary pad with vaginal bleeding within one hour. Some spotting is normal after surgery, but increased bleeding should be reported. -If you have fever, chills, or any reaction to your medication. -If you are unable to urinate, have not urinated for 4-6 hours, have burning with urination or feel like you are not emptying your bladder. -If you have vaginal discharge with a foul odor. -If you have any questions regarding your surgery or medications. -Depending on your procedure, you may have changes in your mood. These are normal feelings. You can talk to your doctor about treatment options. If you have difficulty breathing, chest pain, uncontrolled bleeding or any other emergency, call 911 or report to the nearest emergency department immediately. Follow-up -Your doctor wants to see you for an appointment in 2 weeks -Please call the office to schedule the appointment. It is very important that you keep your follow up appointment. Your doctor will monitor your healing and medications. This will help to avoid complications after your surgery. Home Medication List * You have been given a list of your current medications. If you have changes in your medications, update your list. * Provide a list of current medications to your primary care physician. * Carry a copy of your current medications with you in case of an emergency. 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 Surgery went without any competitions however after we were done with the surgery patient had significant amount of uterine bleeding due to the uterus inability to contract due to the procidentia and the fact patient on Lovenox due to her history of a DVT. The patient was packed with one-inch gauze to get the uterus back in the normal position to help her bleeding. Patient was seen in recovery was not comfortable going home with that bleeding because of her age and inability to really get back to the hospital if she continues to bleed heavy. It was decided to keep the patient overnight for observation. Patient's packing did come out when she went to the bathroom she accidentally pulled it out but should have no bleeding throughout the night. On hospital day #1 patient was doing well Shane spotting no active bleeding. Patient will be discharged home at this time will follow-up in the office in 2 weeks we will discuss pessary insertion at that time. Patient's pathology is still pending at this time patient's condition at time of discharge was stable. Time Attestation: Total time spent providing and/or coordinating discharge services: Exam - Constitutional Vitals: Temp Pulse Resp BP Pulse Ox 97.8 F 66 16 125/59 94 05/25/18 19:57 05/25/18 19:57 05/25/18 19:57 05/25/18 19:57 05/25/18 19:57 General appearance IM: cooperative, A&O X 3, pleasant, answers questions appropriately - Respiratory Respiratory exam: Present: CTAB - Cardiovascular Cardiovascular exam IM: Present: RRR - GI/Abdominal GI/Abdominal exam IM: normal bowel sounds - Additional comments: patients packing came out last night had no heavy bleeding since last night just spotting, no blood on perineum - Extremities Exam Extremities exam IM: Present: full ROM - Neurological Exam Neurological exam: normal gait - VTE Documentation of Mechanical Device: Intermittent pneumatic compression device
[2018-05-26] MEDS ORDERED: Cholecalciferol (D-3) 1,000 UNIT TABLET PO SCH (09:00)
[2018-05-26] MEDS ORDERED: Furosemide 20 MG TABLET PO SCH (09:00)
[2018-05-26] MEDS ORDERED: Folic Acid 1 MG TABLET PO SCH (09:00)
[2018-05-26 09:35] VITALS: BP 128/66
== END 2018-05-26 10:00 | disposition home or self-care (01) ==
LOC: 1NENUOBS 12:18 → SAMDAY 12:18 → 1NENUOBS 17:25 → SAMDAY 17:30 → 1NENUOBS 18:38
PROVIDERS: ADMIT Obstetrics & Gynecology; ATTEND Obstetrics & Gynecology